=== PATIENT | male | born 2000 | race Two or more races ===

== ENCOUNTER 2022-01-10 07:53 | Outpatient (REF) | payer OTHER, SELFPAY ==
[2022-01-10 08:56] LABS: Hematocrit 49.9 % (42.0-52.0); Hemoglobin 17.3 g/dl (14.0-18.0); Mean Corpuscular HGB Conc 34.7 g/dl (31.0-36.0); Mean Corpuscular Volume 80.9 fL (80.0-98.0); Mean Platelet Volume 8.8 fL (9.4-12.4); Platelet Count 341 X10*3/uL (160-400); Red Blood Count 6.17 X10*6/uL (4.60-5.80); Red Cell Distribution Width 12.2 % (11.0-16.0); White Blood Count 9.8 X10*3/uL (4.8-10.8)
[2022-01-10 09:25] LABS: Alanine Aminotransferase 42 U/L (0-40); Albumin Level 4.5 g/dL (3.5-5.0); Alkaline Phosphatase 73 U/L (39-117); Anion Gap 17 (12-20); Aspartate Amino Transferase 36 U/L (5-37); Bilirubin Total 0.9 mg/dL (0.0-1.0); Blood Urea Nitrogen 10 mg/dL (9-16); Calcium 9.5 mg/dL (8.4-10.2); Carbon Dioxide 22 mmol/L (22-29); Chloride 106 mmol/L (96-108); Estimated Glomerular Filt Rate > 60; Glucose Fasting 85 mg/dL (60-99); Potassium 3.9 mmol/L (3.3-5.1); Sodium 141 mmol/L (135-145); Total Protein 7.5 g/dL (6.5-8.0)
[2022-01-10 09:34] LABS: TSH reflex Free T4 2.18 uIU/mL (0.32-4.0)
== END 2022-01-10 07:54 | disposition home or self-care (01) ==
LOC: HO.LAB 07:53
PROVIDERS: PCP Physician Assistant; Visit Provider Physician Assistant
DX: Z13.29 Encounter for screening for other suspected endocrine disorder (principal)
CPT/HCPCS: 36415; 80053; 84443; 85027

== ENCOUNTER 2023-01-23 07:32 | Outpatient (REF) | payer OTHER, SELFPAY ==
[2023-01-23 08:42] LABS: Hematocrit 47.2 % (42.0-52.0); Hemoglobin 16.3 g/dl (14.0-18.0); Mean Corpuscular HGB Conc 34.5 g/dl (31.0-36.0); Mean Corpuscular Hemoglobin 28.6 pg (27.0-33.0); Mean Corpuscular Volume 82.8 fL (80.0-98.0); Mean Platelet Volume 9.3 fL (9.4-12.4); Platelet Count 309 X10*3/uL (160-400); White Blood Count 10.7 X10*3/uL (4.8-10.8)
[2023-01-23 09:13] LABS: Alanine Aminotransferase 22 U/L (0-40); Albumin Level 4.4 g/dL (3.5-5.0); Alkaline Phosphatase 73 U/L (39-117); Anion Gap 13 (12-20); Aspartate Amino Transferase 25 U/L (5-37); Bilirubin Total 0.7 mg/dL (0.0-1.0); Blood Urea Nitrogen 7 mg/dL (9-16); Calcium 9.4 mg/dL (8.4-10.2); Carbon Dioxide 23 mmol/L (22-29); Chloride 107 mmol/L (96-108); Estimated Glomerular Filt Rate > 60; Glucose Fasting 85 mg/dL (60-99); Potassium 3.4 mmol/L (3.3-5.1); Sodium 140 mmol/L (135-145); Total Protein 7.5 g/dL (6.5-8.0)
[2023-01-23 09:29] LABS: TSH reflex Free T4 2.16 uIU/mL (0.32-4.0)
== END 2023-01-23 07:33 | disposition home or self-care (01) ==
LOC: HO.LAB 07:32
PROVIDERS: PCP Physician Assistant; Visit Provider Physician Assistant
DX: Z13.29 Encounter for screening for other suspected endocrine disorder (principal); Z13.1 Encounter for screening for diabetes mellitus
CPT/HCPCS: 36415; 80053; 84443; 85027

== ENCOUNTER 2023-01-23 11:21 | Outpatient (AMB) | payer OTHER, SELFPAY ==
--- NOTE | 2023-01-23 11:24 | MHC.PC.OV ---
Vital Signs 01/23/23 11:28 01/23/23 12:08 Height 5 ft 8 in Weight 255 lb 6 oz BMI 38.8 BP 138/80 150/90 H Blood Pressure Location Lt brachial Position Sitting Pulse 59 Pulse Source Pulse Oximeter Pulse Oximetry (%) 97 Oxygen Delivery Method Room Air Intake Visit Reasons: physical Intake Note: Patient is here today for a physical. Test Worker Required: No Higher Level Teaching Assistant: Present Accompanied by: Mother Allergies No Known Allergies Allergy (Verified 01/23/23 11:56) Medication List - Last Reconciled 01/23/23 by Ricardo Lockett PA-C albuterol sulfate 2.5 mg (3 mL) inhalation Q6H 30 days albuterol sulfate 90 mcg/actuation (Ventolin HFA) 1 puff inhalation QID 30 days atomoxetine (Strattera) 80 mg PO DAILY 30 days docosanol 10% (Abreva) 1 appl topical ONCE 15 days fluticasone propionate 50 mcg/actuation (Flonase Allergy Relief) 1 spray intranasal DAILY hydroxyzine HCl 25 mg PO BEDTIME 30 days Tobacco use date assessed: 01/23/23 Dental Screening Dental Screen Date: 01/23/23 Did you have a dental visit in the last 12 months?: Yes Did you have a dental problem in the last 6 months where you did not have access to dental care?: No Was dental information given to patient?: Patient has dentist HPI physical HPI Details Patient is a 23-year-old male here today for routine annual physical. Patient has a past medical history significant for attention deficit disorder, obesity, insomnia in asthma. Concern--> reports intermittently getting headaches. Of note blood pressure in office today slightly elevated. Supply patient with blood pressure cuff script to do home blood pressure monitoring. .. Asthma: Has been well controlled with only p.r.n. use of albuterol inhaler. . ADD: Continues on Strattera with good effect on of his inattentiveness .. Labs reviewed with patient in all within relatively normal limits. Vaccines: Up-to-date flu vaccine, up-to-date with tetanus, Declines COVID Laboratory Tests 01/23/23 07:43 RBC 5.70 Fasting Glucose 85 TSH 2.16 PFSH Surgical History No pertinent past surgical history Family History Father Medical history unknown Mother No problems noted. Paternal Grandfather Hyperlipidemia Diabetes Hypertension Brother In good health Sister In good health Social History Housing: House Alcohol intake: never Patient Tobacco Use Status: Never used Tobacco Tobacco use type: Cigarette e-Cigarette/Vaping Use: Never Used Second Hand Smoke Exposure: No service: No Current occupational status: disabled Current occupation: [employer] Cognitive needs: No Hearing needs: No Vision needs: Yes (Glasses) Questionnaire Thrive Questionnaire Date Thrive assessed: 05/11/22 ALMA-7 AMB Questionnaire ALMA-7 Date ALMA - 7 assessed: 01/23/23 Feeling nervous, anxious, or on edge: 0 = Not at all Not being able to stop or control worryin = Not at all Worrying too much about different things: 0 = Not at all Trouble relaxin = Not at all Being so restless that it is hard to sit still: 0 = Not at all Becoming easily annoyed or irritable: 0 = Not at all Feeling afraid as if something awful might happen: 0 = Not at all Total ALMA-7 score (0-4 normal; 5-9 mild; 10-14 moderate; 15-21 severe): 0 Source: Developed by Drs. Navneet Fuentes, Damaris Jorgensen, Calos Orellana and colleagues, with an educational shivani from [employer]. ALMA-7 Assessment Billing ALMA-7 Assessment Tool: ALMA-7 Assessment 76286 ACT Questionnaire In the past 4 weeks, how much of the time did your asthma keep you from getting as much done at work, school or at home?: None of the time During the past 4 weeks, how often have you had shortness of breath?: Not at all During the past 4 weeks, how often did your asthma symptoms wake you up at night or earlier than usual in the morning?: Not at all During the past 4 weeks, how often have you had to use your rescue inhaler or nebulizer medication?: Not at all How would you rate your asthma control during the past 4 weeks?: Completely controlled ACT Interpretation: Negative Score: 25 Review of Systems Const Denies body aches, Denies chills, Denies excessive sweating, Denies fatigue, Denies fever(s) and Denies headache(s) Eyes Denies blurry vision ENT Denies dysphagia, Denies vertigo, Denies dizziness, Denies headache(s), Denies hearing loss and Denies tinnitus Card Denies chest pain, Denies chest pain with activity, Denies syncope, Denies irregular heart rhythm and Denies dyspnea Resp Denies chest congestion, Denies cough, Denies hemoptysis, Denies dyspnea and Denies wheezing GI Denies abdominal pain, Denies melena, Denies hematochezia, Denies coffee ground emesis, Denies dysphagia, Denies diarrhea, Denies nausea and Denies vomiting Denies difficulty urinating, Denies dysuria, Denies urinary frequency, Denies urinary hesitancy and Denies urinary urgency Musc Denies arthralgias, Denies limited range of motion, Denies muscle cramps and Denies muscle weakness Skin/Breast Denies rash and Denies skin ulcer Neuro Denies Abnormal speech present, Denies confusion, Denies vertigo, Denies dizziness, Denies syncope, Denies headache(s), Denies memory loss and Denies seizure-like activity Psych Denies anxiety, Denies confusion, Denies depression, Denies memory loss, Denies panic attacks and Denies paranoia Endo Denies excessive sweating, Denies fatigue, Denies flushing, Denies polydipsia and Denies polyuria Aller/Immun Denies wheezing Physical exam (Primary Care) Vital Signs: Last Vital Signs Pulse 59 01/23/23 11:28 BP 138/80 01/23/23 11:28 Pulse Ox 97 01/23/23 11:28 Oxygen Delivery Method Room Air 01/23/23 11:28 BMI result Body Mass Index 38.8 BMI Assessment/Plan discussion: High Tobacco/Smoking Status: Tobacco use Status Tobacco use date assessed 01/23/23 01/23/23 11:33 Patient Tobacco Use Status Never used Tobacco 01/23/23 11:27 Tobacco use type Cigarette 01/23/23 11:27 e-Cigarette/Vaping Use Never Used 01/23/23 11:27 Thrive Assessment: Date of Thrive Assessment Date Thrive assessed 05/11/22 01/23/23 11:27 Const Other: OBESE General: cooperative, comfortable, no acute distress, alert and awake; No confusion Orientation/consciousness: oriented to person, oriented to place, patient oriented x3 and No confusion HENMT Head: Yes normocephalic Ears: external ears normal and TM's normal bilaterally Face and sinus: No sinus tenderness Mouth: Normal oral and palatal mucosa present and tongue normal Teeth and gingiva: dentition normal and gingiva normal Throat: Yes posterior oropharynx normal, Yes tonsils normal and Yes uvula midline Eyes Conjunctivae: conjunctivae normal Sclerae: sclerae normal Pupils: Equal, round and reactive pupils present EOM: EOMs intact bilaterally Direct Ophthalmoscopy: No no photophobia Neck Neck: Yes no lymphadenopathy, No tender and Yes no JVD Thyroid: Thyroid normal Carotids: no bruits Chest Chest palpation & inspection: no tenderness Resp Effort & Inspection: normal respiratory effort, no audible wheezes, not labored and no stridor Auscultation: no crackles, no rales, no rhonchi and no wheezes Cardio Jugular venous distension: no JVD Rate: regular rate, not bradycardic and not tachycardic Rhythm: regular rhythm Bruits: no carotid bruits Peripheral pulses: Peripheral pulses 2+ throughout GI Inspection: Yes normal to inspection, No abdominal wall ecchymosis and No visible herniation Palpation (GI): Soft to palpation, nontender, no guarding, not rigid and No hepatosplenomegaly present Auscultation: normoactive bowel sounds General: Yes no CVA tenderness Back/Spine/Pelvis Back: no CVA tenderness and No back tenderness Cervical Spine: cervical ROM normal Thoracic/Lumbar Spine: thoracic and lumbar spine normal to inspection, straight leg raise negative bilaterally, No thoraco-lumbar ROM limited and No lumbar spinal tenderness Skin Lesions: no lesions Rashes: no rashes Wounds: no wounds Neuro General: oriented to person, oriented to place, patient oriented x3, CN's II-XI intact bilaterally and No confusion Cranial nerves: Yes Equal, round and reactive pupils present and Yes Normal accommodation reflex present Cognition (Neuro): normal cognition Speech: No Abnormal speech present Gait exam (Neuro): Normal gait present Motor exam (neuro): 5/5 motor strength present throughout Extrem Right upper extremity: full ROM; no cyanosis Left upper extremity: full ROM; no cyanosis Right lower extremity: no edema Left lower extremity: no edema Psych Appearance: grossly normal Mental Status: mental status grossly normal Affect: normal affect Attitude: cooperative Thought process: Normal thought process present Office Procedures Flu Questionnaire Does the patient have a severe egg allergy?: No Does the patient have severe life threatening allergies?: No Does the patient have a fever or illness today?: No Has the patient ever had Guillain-Kincaid Syndrome?: No Has the patient ever had any past reaction to a flu shot?: No Immunizations flu vacc [id number] 6mos up(PF) 60 mcg(15 mcgx4)/0.5 mL IM syringe Performing Provider: Ricardo Lockett PA-C Performing Location: [facility] Administered by: Keven Palm on 01/23/23 11:40 Dose Route Admin Location Dispensed Lot Number Expiration Date [employer] Script [employer] 0.5 mL IM Left Deltoid 0.5 mL [id number] 09/24/23 [id number] [employer] Resistant Bedding VIS Given Date VIS Provided VIS Publication Date 01/23/23 Single Vaccine 20 Eligibility Eligibility Date Funding Source Not [facility] Eligible 01/23/23 Private Assessment and Plan Assessment & Plan (1) Annual physical exam: Code(s): Z00.00 - Encounter for general adult medical examination without abnormal findings (2) ADD (attention deficit disorder): Code(s): F98.8 - Other specified behavioral and emotional disorders with onset usually occurring in childhood and adolescence Qualifiers: Hyperactivity presence: present Attention deficit-hyperactivity disorder type: predominantly hyperactive Qualified Code(s): F90.1 - Attention-deficit hyperactivity disorder, predominantly hyperactive type Plan: Patient continues on strattera with good effect on his inattentiveness. (3) Asthma: Code(s): J45.909 - Unspecified asthma, uncomplicated Qualifiers: Asthma severity: mild Asthma persistence: intermittent Asthma complication type: uncomplicated Qualified Code(s): J45.20 - Mild intermittent asthma, uncomplicated Plan: Patient reports his asthma has been well controlled only using his albuterol inhaler on a p.r.n. basis. Denies any nighttime awakenings with asthma symptoms (4) Obese: Code(s): E66.9 - Obesity, unspecified Qualifiers: Obesity type: due to excess calories Obesity classification: adult class 3 (BMI >= 40) Serious obesity comorbidity presence: without serious comorbidity Body mass index: BMI 40.0-44.9 Qualified Code(s): E66.01 - Morbid (severe) obesity due to excess calories; Z68.41 - Body mass index [BMI] 40.0-44.9, adult Plan: Patient does understand his BMI is over 30 will work on being more physically active and adapting to better eating habits (5) Elevated blood pressure reading: Code(s): R03.0 - Elevated blood-pressure reading, without diagnosis of hypertension Plan: Noted elevated blood pressure readings today in office. Will supply patient with paper Rx for blood pressure cuff to do home blood pressure monitoring with goal blood pressure to be below 140/90 (6) HTN (hypertension): Code(s): I10 - Essential (primary) hypertension Qualifiers: Hypertension type: primary hypertension Qualified Code(s): I10 - Essential (primary) hypertension Orders: Orders Comprehensive [place]. Panel Fast Today Z13.1 - Encounter for screening for diabetes mellitus Microalbumin, Random (w Creat) Today I10 - Essential (primary) hypertension Influenza [id number] Immunization Today Z23 - Encounter for immunization Medications: New blood pressure test kit-large Testing once a day 1 ea 0RF I10 - Essential (primary) hypertension ibuprofen 600 mg PO TID PRN 45 tabs 3RF pain 15 days H92.02 - Otalgia, left ear Refilled albuterol sulfate 90 mcg/actuation (Ventolin HFA) 1 puff inhalation QID 30 days 8.5 grams 3RF J45.20 - Mild intermittent asthma, uncomplicated albuterol sulfate 2.5 mg (3 mL) inhalation Q6H 30 days 90 mL 2RF J45.20 - Mild intermittent asthma, uncomplicated Coding Level of Care Code Est Pt Prev Care [id number]) Diagnoses Annual physical exam Z00.00 Attention deficit hyperactivity disorder (ADHD), predominantly hyperactive type F90.1 Hyperactivity presence: present Attention deficit-hyperactivity disorder type: predominantly hyperactive Mild intermittent asthma without complication J45.20 Asthma severity: mild Asthma persistence: intermittent Asthma complication type: uncomplicated Class 3 severe obesity due to excess calories without serious comorbidity with body mass index (BMI) of 40.0 to 44.9 in adult E66.01; Z68.41 Obesity type: due to excess calories Obesity classification: adult class 3 (BMI >= 40) Serious obesity comorbidity presence: without serious comorbidity Body mass index: BMI 40.0-44.9 Elevated blood pressure reading R03.0 Primary hypertension I10 Hypertension type: primary hypertension Additional Codes ALMA-7 Assessment Billing - ALMA-7 Assessment Tool: ALMA-7 Assessment [id number] ([id number])
[2023-01-23 11:28] VITALS: BP 138/80; PULSE 59; O2SAT 97; BMI 38.8
[2023-01-23 12:08] VITALS: BP 150/90
== END 2023-01-23 12:16 | disposition home or self-care (01) ==
PROVIDERS: Visit Provider Physician Assistant
DX: Z00.00 Encounter for general adult medical examination without abnormal findings (principal); E66.01 Morbid (severe) obesity due to excess calories; Z68.41 Body mass index [BMI] 40.0-44.9, adult; F90.1 Attention-deficit hyperactivity disorder, predominantly hyperactive type; J45.20 Mild intermittent asthma, uncomplicated; R03.0 Elevated blood-pressure reading, without diagnosis of hypertension; Z23 Encounter for immunization; I10 Essential (primary) hypertension
CPT/HCPCS: 90471; 90686; 99395

== ENCOUNTER 2024-01-25 10:06 | Outpatient (AMB) | payer OTHER, SELFPAY ==
[2024-01-25 10:09] VITALS: BP 122/82; PULSE 71; O2SAT 97; BMI 39.0
--- NOTE | 2024-01-25 10:09 | A.OFFPC_ITS ---
Vital Signs 01/25/24 10:09 Height 5 ft 8 in Weight 256 lb 8 oz BMI 39.0 BP 122/82 Blood Pressure Location Lt brachial Position Sitting Pulse 71 Pulse Source Pulse Oximeter Pulse Oximetry (%) 97 Oxygen Delivery Method Room Air Intake Visit Reasons: pe Intake Note: Patient is here today for a physical. 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 Accompanied by: Mother Allergies No Known Allergies Allergy (Verified 01/25/24 10:39) Medication List - Last Reconciled 01/25/24 by Ricardo Lockett PA-C albuterol sulfate 2.5 mg (3 mL) inhalation Q6H 30 days albuterol sulfate 90 mcg/actuation (Ventolin HFA) 1 puff inhalation QID 30 days atomoxetine (Strattera) 80 mg PO DAILY 30 days blood pressure test kit-large Testing once a day docosanol 10% (Abreva) 1 appl topical ONCE 15 days fluticasone propionate 50 mcg/actuation (Flonase Allergy Relief) 1 spray intranasal DAILY hydroxyzine HCl 25 mg PO BEDTIME 30 days ibuprofen 600 mg PO TID PRN 15 days Tobacco use date assessed: 01/25/24 Dental Screening Dental Screen Date: 01/25/24 Did you have a dental visit in the last 12 months?: Yes Did you have a dental problem in the last 6 months where you did not have access to dental care?: No Was dental information given to patient?: Patient has dentist HPI pe HPI Details Patient is a 24-year-old male here today for routine annual physical. Patient has a past medical history significant for attention deficit disorder, obesity, insomnia in asthma. .. Asthma: Has been well controlled with only p.r.n. use of albuterol inhaler. . ADD: Continues on Strattera with good effect on of his inattentiveness .. Obesity-patient does understand his BMI is over 35 and will work on being more physically active and adapting to better eating habits to reduce his weight. .. Labs reviewed with patient in all within relatively normal limits. Vaccines: Up-to-date flu vaccine, up-to-date with tetanus, Declines COVID [facility] Surgical History No pertinent past surgical history Family History Father Medical history unknown Mother No problems noted. Paternal Grandfather Hyperlipidemia Diabetes Hypertension Brother In good health Sister In good health Social History Housing: House Alcohol intake: never Patient Tobacco Use Status: Never used Tobacco Tobacco use type: Cigarette e-Cigarette/Vaping Use: Never Used Second Hand Smoke Exposure: No service: No Current occupational status: disabled Current occupation: [employer] Cognitive needs: No Hearing needs: No Vision needs: Yes (Glasses) Questionnaire PHQ-9 Over the last 2 weeks, how often have you been bothered by any of the following problems? 1. Little interest or pleasure in doing things: not at all 2. Feeling down, depressed, or hopeless: not at all 3. Trouble falling or staying asleep, or sleeping too much: not at all 4. Feeling tired or having little energy: not at all 5. Poor appetite or overeating: not at all 6. Feeling bad about yourself - or that you are a failure or have let yourself or your family down: not at all 7. Trouble concentrating on things, such as reading the newspaper or watching television: not at all 8. Moving or speaking so slowly that other people could have noticed. Or the opposite - being so fidgety or restless that you have been moving around a lot more than usual: not at all 9. Thoughts that you would be better off or of hurting yourself in some way: not at all Total score: 0 Depression Screening Interpretation: Negative Depression Screening Done: Yes 05991 - PHQ-9 Billing: Yes Source: Developed by Drs. Navneet Fuentes, Damaris Jorgensen, Calos Orellana and colleagues, with an educational shivani from [employer]. Thrive Questionnaire Date Thrive assessed: 01/25/24 I am a: Parent/Caregiver What is your living situation today?: I have a steady place to live Within the past 12 months, did the food you bought not last and you didn't have the money to get more?: Never true Within the past 12 months, did you worry whether your food would run out before you got money to buy more?: I choose not to answer this question Do you have trouble paying for medicines?: I choose not to answer this question Do you have trouble getting transportation to medical appointments?: No Do you have trouble paying your heating and electricity bill?: No Do you have trouble taking care of your child, family member or friend?: No Do you have trouble with day-to-day activities such as bathing, preparing meals, shopping, managing finances, etc.?: No Are you currently unemployed and looking for a job?: I choose not to answer this question Are you interested in more education?: I choose not to answer this question Please select the resources that you would like help with: None Currently or been in a relationship where the following occur: No concerns reported THRIVE Score: 0 AUDIT C Alcohol Use Questionnaire (AUDIT-C) 1. How often do you have a drink containing alcohol?: Never 3. How often do you have six or more drinks on one occasion?: Never Total Score: 0 ALMA-7 AMB Questionnaire ALMA-7 Date ALMA - 7 assessed: 01/25/24 Feeling nervous, anxious, or on edge: 0 = Not at all Not being able to stop or control worryin = Not at all Worrying too much about different things: 0 = Not at all Trouble relaxin = Not at all Being so restless that it is hard to sit still: 0 = Not at all Becoming easily annoyed or irritable: 0 = Not at all Feeling afraid as if something awful might happen: 0 = Not at all Total ALMA-7 score (0-4 normal; 5-9 mild; 10-14 moderate; 15-21 severe): 0 Source: Developed by Drs. Navneet Fuentes, Damaris Jorgensen, Calos Orellana and colleagues, with an educational shivani from [employer]. ALMA-7 Assessment Billing ALMA-7 Assessment Tool: ALMA-7 Assessment 44709 ACT Questionnaire In the past 4 weeks, how much of the time did your asthma keep you from getting as much done at work, school or at home?: None of the time During the past 4 weeks, how often have you had shortness of breath?: Not at all During the past 4 weeks, how often did your asthma symptoms wake you up at night or earlier than usual in the morning?: Not at all During the past 4 weeks, how often have you had to use your rescue inhaler or nebulizer medication?: Not at all How would you rate your asthma control during the past 4 weeks?: Completely controlled ACT Interpretation: Negative Score: 25 Review of Systems Const Denies body aches, Denies chills, Denies excessive sweating, Denies fatigue, Denies fever(s) and Denies headache(s) Eyes Denies blurry vision ENT Denies dysphagia, Denies vertigo, Denies dizziness, Denies headache(s), Denies hearing loss and Denies tinnitus Card Denies chest pain, Denies chest pain with activity, Denies syncope, Denies irregular heart rhythm and Denies dyspnea Resp Denies chest congestion, Denies cough, Denies hemoptysis, Denies dyspnea and Denies wheezing GI Denies abdominal pain, Denies melena, Denies hematochezia, Denies coffee ground emesis, Denies dysphagia, Denies diarrhea, Denies nausea and Denies vomiting Denies difficulty urinating, Denies dysuria, Denies urinary frequency, Denies ur inary hesitancy and Denies urinary urgency Musc Denies arthralgias, Denies limited range of motion, Denies muscle cramps and Denies muscle weakness Skin/Breast Denies rash and Denies skin ulcer Neuro Denies Abnormal speech present, Denies confusion, Denies vertigo, Denies dizziness, Denies syncope, Denies headache(s), Denies memory loss and Denies seizure-like activity Psych Denies anxiety, Denies confusion, Denies depression, Denies memory loss, Denies panic attacks and Denies paranoia Endo Denies excessive sweating, Denies fatigue, Denies flushing, Denies polydipsia and Denies polyuria Aller/Immun Denies wheezing Physical exam (Primary Care) Vital Signs: Last Vital Signs Pulse 71 01/25/24 10:09 BP 122/82 01/25/24 10:09 Pulse Ox 97 01/25/24 10:09 Oxygen Delivery Method Room Air 01/25/24 10:09 BMI result Body Mass Index 39.0 Tobacco/Smoking Status: Tobacco use Status Tobacco use date assessed 01/25/24 01/25/24 10:25 Patient Tobacco Use Status Never used Tobacco 01/25/24 10:11 Tobacco use type Cigarette 01/25/24 10:11 e-Cigarette/Vaping Use Never Used 01/25/24 10:11 PHQ-9: PHQ-9 Score PHQ-9: Total score 0 01/25/24 10:11 Depression Screening Interpretation: Negative Thrive Assessment: Date of Thrive Assessment Date Thrive assessed 01/25/24 01/25/24 10:11 Currently or been in a relationship where the following occur: No concerns reported Const General: cooperative, comfortable, no acute distress, alert and awake; No confusion Orientation/consciousness: oriented to person, oriented to place, patient oriented x3 and No confusion HENMT Head: Yes normocephalic Ears: external ears normal and TM's normal bilaterally Face and sinus: No sinus tenderness Mouth: Normal oral and palatal mucosa present and tongue normal Teeth and gingiva: dentition normal and gingiva normal Throat: Yes posterior oropharynx normal, Yes tonsils normal and Yes uvula midline Eyes Conjunctivae: conjunctivae normal Sclerae: sclerae normal Pupils: Equal, round and reactive pupils present EOM: EOMs intact bilaterally Direct Ophthalmoscopy: No no photophobia Neck Neck: Yes no lymphadenopathy, No tender and Yes no JVD Thyroid: Thyroid normal Carotids: no bruits Chest Chest palpation & inspection: no tenderness Resp Effort & Inspection: normal respiratory effort, no audible wheezes, not labored and no stridor Auscultation: no crackles, no rales, no rhonchi and no wheezes Cardio Jugular venous distension: no JVD Rate: regular rate, not bradycardic and not tachycardic Rhythm: regular rhythm Bruits: no carotid bruits Peripheral pulses: Peripheral pulses 2+ throughout GI Inspection: Yes normal to inspection, No abdominal wall ecchymosis and No visible herniation Palpation (GI): Soft to palpation, nontender, no guarding, not rigid and No hepatosplenomegaly present Auscultation: normoactive bowel sounds General: Yes no CVA tenderness Back/Spine/Pelvis Back: no CVA tenderness and No back tenderness Cervical Spine: cervical ROM normal Thoracic/Lumbar Spine: thoracic and lumbar spine normal to inspection, straight leg raise negative bilaterally, No thoraco-lumbar ROM limited and No lumbar spinal tenderness Skin Lesions: no lesions Rashes: no rashes Wounds: no wounds Neuro General: oriented to person, oriented to place, patient oriented x3, CN's II-XI intact bilaterally and No confusion Cranial nerves: Yes Equal, round and reactive pupils present and Yes Normal accommodation reflex present Cognition (Neuro): normal cognition Speech: No Abnormal speech present Gait exam (Neuro): Normal gait present Motor exam (neuro): 5/5 motor strength present throughout Extrem Right upper extremity: full ROM; no cyanosis Left upper extremity: full ROM; no cyanosis Right lower extremity: no edema Left lower extremity: no edema Psych Appearance: grossly normal Mental Status: mental status grossly normal Affect: normal affect Attitude: cooperative Thought process: Normal thought process present Office Procedures Flu Questionnaire Does the patient have a severe egg allergy?: No Does the patient have severe life threatening allergies?: No Does the patient have a fever or illness today?: No Has the patient ever had Guillain-Humboldt Syndrome?: No Has the patient ever had any past reaction to a flu shot?: No Immunizations Fluarix Triv [id number] (PF) 45 mcg (15 mcg x 3)/0.5 mL IM syringe Performing Provider: Ricardo Lockett PA-C [facility] [place] [facility] Administered by: JUAN JOSÉ Bray on 01/25/24 10:25 Dose Route Admin Location Dispensed Lot Number Expiration Date [employer] 0.5 mL IM Left Deltoid 0.5 mL [id number] 09/23/24 [id number] [employer] VIS Given Date VIS Provided VIS Publication Date 01/25/24 Single Vaccine 20 Eligibility Eligibility Date Funding Source Not [facility] Eligible 01/25/24 Private Coding Level of Care Code Est Pt Prev Care 18-39y(38597) Diagnoses Annual physical exam Z00.00 Class 2 obesity E66.812 Mild intermittent asthma without complication J45.20 Asthma severity: mild Asthma persistence: intermittent Asthma complication type: uncomplicated Attention deficit hyperactivity disorder (ADHD), predominantly hyperactive type F90.1 Hyperactivity presence: present Attention deficit-hyperactivity disorder type: predominantly hyperactive Additional Codes ALMA-7 Assessment Billing - ALMA-7 Assessment Tool: ALMA-7 Assessment 94877 ([id number]) Asthma Control Questionnaire - ACT Interpretation: Negative ([id number]) Assessment & Plan Assessment & Plan (1) Annual physical exam: Code(s): Z00.00 - Encounter for general adult medical examination without abnormal findings Category: Medical Plan: As per HPI (2) Class 2 obesity: Code(s): E66.812 - Obesity, class 2 Category: Medical Plan: Patient does understand his BMI is over 35 and will work on being more physically active and adapting to better eating habits to reduce his weight (3) Asthma: Code(s): J45.909 - Unspecified asthma, uncomplicated Category: Medical Qualifiers: Asthma severity: mild Asthma persistence: intermittent Asthma complication type: uncomplicated Qualified Code(s): J45.20 - Mild intermittent asthma, uncomplicated Plan: Patient reports his asthma has been fairly well controlled. He denies any nighttime awakenings with asthma symptoms or recent asthma exacerbations. Does use his albuterol inhaler on an as needed basis. (4) ADD (attention deficit disorder): Code(s): F98.8 - Other specified behavioral and emotional disorders with onset usually occurring in childhood and adolescence Category: Medical Qualifiers: Hyperactivity presence: present Attention deficit-hyperactivity disorder type: predominantly hyperactive Qualified Code(s): F90.1 - Attention- deficit hyperactivity disorder, predominantly hyperactive type Plan: Patient reports Strattera 80 mg has been effective for him. He would like to refill on the medication. He is on SSI due to his anxiety and ADD. Currently is looking for work as well. Orders: Orders Influenza [id number] Immunization Today Z23 - Encounter for immunization Comprehensive [place]. Panel Fast Today Z13.1 - Encounter for screening for diabetes mellitus Complete Blood Count no Diff Today Z13.1 - Encounter for screening for diabetes mellitus Medications: Refilled albuterol sulfate 2.5 mg (3 mL) inhalation Q6H 30 days 90 mL 2RF J45.20 - Mild intermittent asthma, uncomplicated atomoxetine (Strattera) 80 mg PO DAILY 30 days 30 caps 6RF F90.1 - Attention- deficit hyperactivity disorder, predominantly hyperactive type albuterol sulfate 90 mcg/actuation (Ventolin HFA) 1 puff inhalation QID 30 days 8.5 grams 3RF J45.20 - Mild intermittent asthma, uncomplicated fluticasone propionate 50 mcg/actuation (Flonase Allergy Relief) administer into each nostril 1 spray intranasal DAILY 9.9 mL 1RF
== END 2024-01-25 10:50 | disposition home or self-care (01) ==
LOC: HO.HMCH 10:06
PROVIDERS: PCP Physician Assistant; Visit Provider Physician Assistant
DX: Z00.00 Encounter for general adult medical examination without abnormal findings (principal); E66.812 Obesity, class 2; Z68.39 Body mass index [BMI] 39.0-39.9, adult; J45.20 Mild intermittent asthma, uncomplicated; F90.1 Attention-deficit hyperactivity disorder, predominantly hyperactive type

== ENCOUNTER → 2024-01-25 10:06 | Outpatient (BNVA) | payer OTHER, SELFPAY | PROVIDERS: PCP Physician Assistant; Visit Provider Physician Assistant | DX: Z00.01 Encounter for general adult medical examination with abnormal findings (principal); Z23 Encounter for immunization; E66.812 Obesity, class 2; J45.20 Mild intermittent asthma, uncomplicated; F90.1 Attention-deficit hyperactivity disorder, predominantly hyperactive type | CPT/HCPCS: 90471; 90656; 96127; 96160; 99395 ==

== ENCOUNTER 2024-10-21 11:09 | Outpatient (AMB) | payer OTHER, SELFPAY ==
[2024-10-21 11:57] VITALS: BP 110/74; PULSE 62; TEMP 36.9; O2SAT 98; BMI 37.9
--- NOTE | 2024-10-21 11:57 | AM.OFFWIN_ITS ---
Intake Vital Signs 3 10/21/24 11:57 Height 5 ft 8 in Weight 249 lb BMI 37.9 BP 110/74 Blood Pressure Location Lt brachial Position Sitting Pulse 62 Pulse Source Pulse Oximeter Temp 98.4 F Temp Source Oral Pulse Oximetry (%) 98 Oxygen Delivery Method Room Air Intake Visit Reasons: EP LT eye redness/irritation/swelling Intake Note: presents with LT eye swelling, itchiness and weeping for 2 days. Also c/o asymptomatic rash on right wrist Patient Tobacco Use Status: Never used Tobacco Allergies No Known Allergies Allergy (Verified 10/21/24 12:00) Do you need a note to return to daycare/school/sports/work: No HPI HPI Comments 2 History of Present Illness0 Details 24 y/o Male patient who presents to the walk in clinic with c/o Left eyelid swelling and Redness for 2 days. Reports Yellow crusty discharge around eye and itching. Denies light sensitivity or eye pain. Denies vision changes. Pt also c/o rash right wrist for few days now. [facility] Medical History (Updated 10/21/24 @ 12:43 by Kallie Mims NP) Rash and nonspecific skin eruption Bacterial conjunctivitis of left eye Surgical History No pertinent past surgical history Family History Father Medical history unknown Mother No problems noted. Paternal Grandfather Hyperlipidemia Diabetes Hypertension Brother In good health Sister In good health Social History Housing: House Alcohol intake: never Patient Tobacco Use Status: Never used Tobacco Tobacco use type: Cigarette e-Cigarette/Vaping Use: Never Used Second Hand Smoke Exposure: No service: No Current occupational status: disabled Current occupation: [employer] Cognitive needs: No Hearing needs: No Vision needs: Yes (Glasses) Review of Systems Const All systems reviewed & are unremarkable except as noted in HPI and below Physical Exam Vital Signs: Last Vital Signs Temp 98.4 F 10/21/24 11:57 Pulse 62 10/21/24 11:57 BP 110/74 10/21/24 11:57 Pulse Ox 98 10/21/24 11:57 Oxygen Delivery Method Room Air 10/21/24 11:57 BMI result Body Mass Index 37.9 Const General: no acute distress Nutritional Appearance: obese Orientation/consciousness: patient oriented x3 Eyes Periorbital: periorbital findings abnormal left periorbital swelling, periorbital tenderness and periorbital erythema Conjunctivae: conjunctival abnormal left conjunctival injection and discharge Pupils: Equal, round and reactive pupils present EOM: EOMs intact bilaterally Eyes/upper lids images: 2 1. Lower Lid Swelling Erythematous, TTP Skin Rashes: rashes noted (right wrist - macular papular rash) Neuro General: patient oriented x3 Cranial nerves: Yes Equal, round and reactive pupils present Psych Speech and movement: Normal speech and movement present Assessment & Plan Assessment & Plan (1) Bacterial conjunctivitis of left eye: Code(s): H10.9 - Unspecified conjunctivitis Plan: Ordered Abx ointment for 7 days. Maintain a Good eye hygiene, and wash hand frequently Apply warm compress over eye (2) Rash and nonspecific skin eruption: Code(s): R21 - Rash and other nonspecific skin eruption Plan: DDx's: Eczema vs Dermatitis vs psoriasis Medications: New 2 erythromycin 0.5 inches ophthalmic (eye) BID 50 grams 0RF 7 days H10.9 - Unspecified conjunctivitis triamcinolone acetonide 0.5% 1 appl topical BID 15 grams 0RF 14 days R21 - Rash and other nonspecific skin eruption Coding Level of Care Code Est Pt Level 4 (47581) Diagnoses Bacterial conjunctivitis of left eye H10.9 Rash and nonspecific skin eruption R21 Time Spent (min) 20
== END 2024-10-21 12:49 | disposition home or self-care (01) ==
PROVIDERS: PCP Physician Assistant; Visit Provider Nurse Practitioner Family
DX: H10.9 Unspecified conjunctivitis (principal); R21 Rash and other nonspecific skin eruption

== ENCOUNTER → 2024-10-21 11:09 | Outpatient (BNVA) | payer OTHER, SELFPAY | PROVIDERS: PCP Physician Assistant; Visit Provider Nurse Practitioner Family | DX: R21 Rash and other nonspecific skin eruption (principal); H10.9 Unspecified conjunctivitis | CPT/HCPCS: 99212 ==

== ENCOUNTER 2025-01-27 10:02 | Outpatient (AMB) | payer OTHER, SELFPAY ==
--- NOTE | 2025-01-27 10:22 | MHC.PC.OV ---
Vital Signs 01/27/25 10:23 Height 5 ft 8 in Weight 251 lb 6 oz BMI 38.2 BP 120/60 Blood Pressure Location Lt brachial Position Sitting Pulse 71 Pulse Source Pulse Oximeter Temp 97.3 F Temp Source Temporal Artery Scan Pulse Oximetry (%) 97 Oxygen Delivery Method Room Air Intake Visit Reasons: pe Intake Note: Patient is here today for a physical. 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 Accompanied by: Mother Allergies No Known Allergies Allergy (Verified 01/27/25 10:56) Medication List - Last Reconciled 01/27/25 by Ricardo Lockett PA-C albuterol sulfate 90 mcg/actuation (Ventolin HFA) 1 puff inhalation QID 30 days atomoxetine 80 mg PO DAILY 30 days blood pressure test kit-large Testing once a day erythromycin 0.5 inches ophthalmic (eye) BID 7 days hydroxyzine HCl 25 mg PO BEDTIME 30 days ibuprofen 600 mg PO TID PRN 15 days triamcinolone acetonide 0.5% 1 appl topical BID 14 days Tobacco use date assessed: 01/27/25 Dental Screening Dental Screen Date: 01/27/25 Did you have a dental visit in the last 12 months?: No Did you have a dental problem in the last 6 months where you did not have access to dental care?: No Was dental information given to patient?: No HPI pe HPI Details Patient is a 25-year-old male here today for routine annual physical. Patient has a past medical history significant for attention deficit disorder, obesity, insomnia in asthma. Concern--> The patient reports having painful skin tags on his neck. .. Asthma: Has been well controlled with only p.r.n. use of albuterol inhaler. . ADD: Continues on Strattera with good effect on of his inattentiveness .. Class 2 Obesity-patient does understand his BMI is over 35 and will work on being more physically active and adapting to better eating habits to reduce his weight. .. Vaccines: Up-to-date flu vaccine, up-to-date with tetanus, Declines COVID, Declines FLu PFSH Medical History Rash and nonspecific skin eruption Bacterial conjunctivitis of left eye Surgical History No pertinent past surgical history Family History Father Medical history unknown Mother No problems noted. Paternal Grandfather Hyperlipidemia Diabetes Hypertension Brother In good health Sister In good health Social History Housing: House Alcohol intake: never Patient Tobacco Use Status: Never used Tobacco Tobacco use type: Cigarette e-Cigarette/Vaping Use: Never Used Second Hand Smoke Exposure: No service: No Current occupational status: disabled Current occupation: [employer] Cognitive needs: No Hearing needs: No Vision needs: Yes (Glasses) Questionnaire PHQ-9 Over the last 2 weeks, how often have you been bothered by any of the following problems? 1. Little interest or pleasure in doing things: several days 2. Feeling down, depressed, or hopeless: not at all 3. Trouble falling or staying asleep, or sleeping too much: several days 4. Feeling tired or having little energy: several days 5. Poor appetite or overeating: not at all 6. Feeling bad about yourself - or that you are a failure or have let yourself or your family down: not at all 7. Trouble concentrating on things, such as reading the newspaper or watching television: not at all 8. Moving or speaking so slowly that other people could have noticed. Or the opposite - being so fidgety or restless that you have been moving around a lot more than usual: several days 9. Thoughts that you would be better off or of hurting yourself in some way: not at all Total score: 4 Depression Screening Interpretation: Positive Depression Screening Follow-up: Existing condition Depression Screening Done: Yes 37688 - PHQ-9 Billing: Yes Source: Developed by Drs. Navneet Fuentes, Damaris Jorgensen, Calos Orellana and colleagues, with an educational shivani from [employer]. Thrive Questionnaire Date Thrive assessed: 01/27/25 I am a: Parent/Caregiver What is your living situation today?: I choose not to answer this question Within the past 12 months, did the food you bought not last and you didn't have the money to get more?: Never true Within the past 12 months, did you worry whether your food would run out before you got money to buy more?: I choose not to answer this question Do you have trouble paying for medicines?: No Do you have trouble getting transportation to medical appointments?: No Do you have trouble paying your heating and electricity bill?: No Do you have trouble taking care of your child, family member or friend?: No Do you have trouble with day-to-day activities such as bathing, preparing meals, shopping, managing finances, etc.?: I choose not to answer this question Are you currently unemployed and looking for a job?: No Are you interested in more education?: I choose not to answer this question Please select the resources that you would like help with: None Currently or been in a relationship where the following occur: No concerns reported THRIVE Score: 0 AUDIT C Alcohol Use Questionnaire (AUDIT-C) 1. How often do you have a drink containing alcohol?: Never Total Score: 0 ALMA-7 AMB Questionnaire ALMA-7 Date ALMA - 7 assessed: 01/27/25 Feeling nervous, anxious, or on edge: 0 = Not at all Not being able to stop or control worryin = Not at all Worrying too much about different things: 0 = Not at all Trouble relaxin = Not at all Being so restless that it is hard to sit still: 0 = Not at all Becoming easily annoyed or irritable: 0 = Not at all Feeling afraid as if something awful might happen: 0 = Not at all Total ALMA-7 score (0-4 normal; 5-9 mild; 10-14 moderate; 15-21 severe): 0 Source: Developed by Drs. Navneet Fuentes, Damaris Jorgensen, Claos Orellana and colleagues, with an educational shivani from [employer]. ALMA-7 Assessment Billing ALMA-7 Assessment Tool: ALMA-7 Assessment 60648 ACT Questionnaire In the past 4 weeks, how much of the time did your asthma keep you from getting as much done at work, school or at home?: None of the time During the past 4 weeks, how often have you had shortness of breath?: Not at all During the past 4 weeks, how often did your asthma symptoms wake you up at night or earlier than usual in the morning?: Not at all During the past 4 weeks, how often have you had to use your rescue inhaler or nebulizer medication?: Not at all How would you rate your asthma control during the past 4 weeks?: Completely controlled ACT Interpretation: Negative Score: 25 Review of Systems Const Denies body aches, Denies chills, Denies excessive sweating, Denies fatigue, Denies fever(s) and Denies headache(s) Eyes Denies blurry vision ENT Denies dysphagia, Denies vertigo, Denies dizziness, Denies headache(s), Denies hearing loss and Denies tinnitus Card Denies chest pain, Denies chest pain with activity, Denies syncope, Denies irregular heart rhythm and Denies dyspnea Resp Denies chest congestion, Denies cough, Denies hemoptysis, Denies dyspnea and Denies wheezing GI Denies abdominal pain, Denies melena, Denies hematochezia, Denies coffee ground emesis, Denies dysphagia, Denies diarrhea, Denies nausea and Denies vomiting Denies difficulty urinating, Denies dysuria, Denies urinary frequency, Denies urinary hesitancy and Denies urinary urgency Musc Denies arthralgias, Denies limited range of motion, Denies muscle cramps and Denies muscle weakness Skin/Breast Denies rash and Denies skin ulcer Neuro Denies Abnormal speech present, Denies confusion, Denies vertigo, Denies dizziness, Denies syncope, Denies headache(s), Denies memory loss and Denies seizure-like activity Psych Denies anxiety, Denies confusion, Denies depression, Denies memory loss, Denies panic attacks and Denies paranoia Endo Denies excessive sweating, Denies fatigue, Denies flushing, Denies polydipsia and Denies polyuria Aller/Immun Denies wheezing Physical exam (Primary Care) Vital Signs: Last Vital Signs Temp 97.3 F 01/27/25 10:23 Pulse 71 01/27/25 10:23 BP 120/60 01/27/25 10:23 Pulse Ox 97 01/27/25 10:23 Oxygen Delivery Method Room Air 01/27/25 10:23 BMI result Body Mass Index 38.2 BMI Assessment/Plan discussion: High BMI High, discussed plan: lifestyle, weight reduction, dietary and physical activity Tobacco/Smoking Status: Tobacco use Status Tobacco use date assessed 01/27/25 01/27/25 10:24 Patient Tobacco Use Status Never used Tobacco 01/27/25 10:24 Tobacco use type Cigarette 01/27/25 10:24 e-Cigarette/Vaping Use Never Used 01/27/25 10:24 PHQ-9: PHQ-9 Score PHQ-9: Total score 4 01/27/25 10:24 Depression Screening Interpretation: Positive Depression Screening Follow-up: Existing condition Thrive Assessment: Date of Thrive Assessment Date Thrive assessed 01/27/25 01/27/25 10:24 Currently or been in a relationship where the following occur: No concerns reported Const General: cooperative, comfortable, no acute distress, alert and awake; No confusion Orientation/consciousness: oriented to person, oriented to place, patient oriented x3 and No confusion HENMT Head: Yes normocephalic Ears: external ears normal and TM's normal bilaterally Face and sinus: No sinus tenderness Mouth: Normal oral and palatal mucosa present and tongue normal Teeth and gingiva: dentition normal and gingiva normal Throat: Yes posterior oropharynx normal, Yes tonsils normal and Yes uvula midline Eyes Conjunctivae: conjunctivae normal Sclerae: sclerae normal Pupils: Equal, round and reactive pupils present EOM: EOMs intact bilaterally Direct Ophthalmoscopy: No no photophobia Neck Neck: Yes no lymphadenopathy, No tender and Yes no JVD Thyroid: Thyroid normal Carotids: no bruits Chest Chest palpation & inspection: no tenderness Resp Effort & Inspection: normal respiratory effort, no audible wheezes, not labored and no stridor Auscultation: no crackles, no rales, no rhonchi and no wheezes Cardio Jugular venous distension: no JVD Rate: regular rate, not bradycardic and not tachycardic Rhythm: regular rhythm Bruits: no carotid bruits Peripheral pulses: Peripheral pulses 2+ throughout GI Inspection: Yes normal to inspection, No abdominal wall ecchymosis and No visible herniation Palpation (GI): Soft to palpation, nontender, no guarding, not rigid and No hepatosplenomegaly present Auscultation: normoactive bowel sounds General: Yes no CVA tenderness Back/Spine/Pelvis Back: no CVA tenderness and No back tenderness Cervical Spine: cervical ROM normal Thoracic/Lumbar Spine: thoracic and lumbar spine normal to inspection, straight leg raise negative bilaterally, No thoraco-lumbar ROM limited and No lumbar spinal tenderness Skin Lesions: no lesions Rashes: no rashes Wounds: no wounds Neuro General: oriented to person, oriented to place, patient oriented x3, CN's II-XI intact bilaterally and No confusion Cranial nerves: Yes Equal, round and reactive pupils present and Yes Normal accommodation reflex present Cognition (Neuro): normal cognition Speech: No Abnormal speech present Gait exam (Neuro): Normal gait present Motor exam (neuro): 5/5 motor strength present throughout Extrem Right upper extremity: full ROM; no cyanosis Left upper extremity: full ROM; no cyanosis Right lower extremity: no edema Left lower extremity: no edema Psych Appearance: grossly normal Mental Status: mental status grossly normal Affect: normal affect Attitude: cooperative Thought process: Normal thought process present Coding Level of Care Code Est Pt Prev Care 18-39y(87738) Diagnoses Annual physical exam Z00.00 Skin tag L91.8 Class 2 obesity E66.812 Mild intermittent asthma without complication J45.20 Asthma severity: mild Asthma persistence: intermittent Asthma complication type: uncomplicated Attention deficit hyperactivity disorder (ADHD), predominantly hyperactive type F90.1 Hyperactivity presence: present Attention deficit-hyperactivity disorder type: predominantly hyperactive Additional Codes ALMA-7 Assessment Billing - ALMA-7 Assessment Tool: ALMA-7 Assessment 37426 ([id number]) PHQ-9 - 82454 - PHQ-9 Billing: Yes ([id number]) Asthma Control Questionnaire - ACT Interpretation: Negative ([id number]) Assessment & Plan Assessment & Plan (1) Annual physical exam: Code(s): Z00.00 - Encounter for general adult medical examination without abnormal findings Category: Medical Plan: As per HPI (2) Skin tag: Code(s): L91.8 - Other hypertrophic disorders of the skin Category: Medical Plan: For the painful skin tags on his neck, a referral will be placed to a general surgeon for evaluation and potential removal. The patient was informed that the hospital will contact him to schedule this appointment. (3) Class 2 obesity: Code(s): E66.812 - Obesity, class 2 Category: Medical Plan: Has lost a few lb since last year.x. Patient does understand his BMI is over 35 and will work on being more physically active and adapting to better eating habits to reduce his weight (4) Asthma: Code(s): J45.909 - Unspecified asthma, uncomplicated Category: Medical Qualifiers: Asthma severity: mild Asthma persistence: intermittent Asthma complication type: uncomplicated Qualified Code(s): J45.20 - Mild intermittent asthma, uncomplicated Plan: Patient reports his asthma has been fairly well controlled. He denies any nighttime awakenings with asthma symptoms or recent asthma exacerbations. Does use his albuterol inhaler on an as needed basis. (5) ADD (attention deficit disorder): Code(s): F98.8 - Other specified behavioral and emotional disorders with onset usually occurring in childhood and adolescence Category: Medical Qualifiers: Hyperactivity presence: present Attention deficit-hyperactivity disorder type: predominantly hyperactive Qualified Code(s): F90.1 - Attention-deficit hyperactivity disorder, predominantly hyperactive type Plan: Patient reports Strattera 80 mg has been effective for him. He would like to refill on the medication. He is on SSI due to his anxiety and ADD. Currently is looking for work as well. Orders: Orders Comprehensive [place]. Panel Fast Today Z13.1 - Encounter for screening for diabetes mellitus Complete Blood Count no Diff Today Z13.1 - Encounter for screening for diabetes mellitus Referrals General Surgery Referral L91.8 - Other hypertrophic disorders of the skin Medications: Refilled erythromycin 0.5 inches ophthalmic (eye) BID 50 grams 0RF 7 days H10.9 - Unspecified conjunctivitis albuterol sulfate 90 mcg/actuation (Ventolin HFA) 1 puff inhalation QID 8.5 grams 3RF 30 days J45.20 - Mild intermittent asthma, uncomplicated atomoxetine 80 mg PO DAILY 30 caps 6RF 30 days F90.1 - Attention-deficit hyperactivity disorder, predominantly hyperactive type ibuprofen 600 mg PO TID PRN 45 tabs 3RF pain 15 days H92.02 - Otalgia, left ear hydroxyzine HCl 25 mg PO BEDTIME 30 tabs 3RF 30 days F51.01 - Primary insomnia triamcinolone acetonide 0.5% 1 appl topical BID 15 grams 0RF 14 days R21 - Rash and other nonspecific skin eruption
[2025-01-27 10:23] VITALS: BP 120/60; PULSE 71; TEMP 36.3; O2SAT 97; BMI 38.2
== END 2025-01-27 12:24 | disposition home or self-care (01) ==
LOC: HO.HMCH 10:03
PROVIDERS: PCP Physician Assistant; Visit Provider Physician Assistant
DX: Z00.00 Encounter for general adult medical examination without abnormal findings (principal); J45.20 Mild intermittent asthma, uncomplicated; E66.812 Obesity, class 2; Z68.38 Body mass index [BMI] 38.0-38.9, adult; L91.8 Other hypertrophic disorders of the skin; F90.1 Attention-deficit hyperactivity disorder, predominantly hyperactive type

== ENCOUNTER → 2025-01-27 10:02 | Outpatient (BNVA) | payer OTHER, SELFPAY | PROVIDERS: PCP Physician Assistant; Visit Provider Physician Assistant | DX: Z00.00 Encounter for general adult medical examination without abnormal findings (principal); L91.8 Other hypertrophic disorders of the skin; E66.812 Obesity, class 2; J45.20 Mild intermittent asthma, uncomplicated; F90.1 Attention-deficit hyperactivity disorder, predominantly hyperactive type; F51.01 Primary insomnia; H92.02 Otalgia, left ear; H10.9 Unspecified conjunctivitis; Z68.38 Body mass index [BMI] 38.0-38.9, adult | CPT/HCPCS: 96127; 96160; 99395 ==